=== PATIENT | male | born 1965 | race Caucasian/White ===

== ENCOUNTER 2020-11-06 08:08 | Day surgery (SDC) | payer BC, OTHER ==
[2020-10-29 12:10] VITALS: BMI 39.0
[2020-11-06] MEDS ORDERED: MIDAZOLAM HCL 2 MG/2 ML SINGLE DOSE VIAL ONE ×3 (09:50→12:09)
[2020-11-06] MEDS ORDERED: BUPIVACAINE HCL/PF 0.5% (5 MG/ML) 30 ML VIAL IJ ONE (09:50)
[2020-11-06] MEDS ORDERED: DEXAMETHASONE SOD PHOSPHATE 10 MG/1 ML VIAL ONE (10:30)
[2020-11-06] MEDS ORDERED: BUPIVACAINE HCL 50 ML ONE (11:41)
[2020-11-06] MEDS ORDERED: ceFAZolin SODIUM 1 GM VIAL ONE ×2 (12:08→13:24)
[2020-11-06] MEDS ORDERED: TRANEXAMIC ACID 1000 MG/10 ML VIAL ONE ×2 (12:08→13:24)
[2020-11-06] MEDS ORDERED: VANCOMYCIN 1,000 MG VIAL (RESTRICTED TO ID ONLY) ONE (12:08)
[2020-11-06] MEDS ORDERED: ONDANSETRON 4 MG/2 ML VIAL IVPUSH PRN ×2 (14:28→15:06)
[2020-11-06] MEDS ORDERED: oxyCODONE HCL 5 MG TABLET PO PRN (14:28)
[2020-11-06] MEDS ORDERED: MAG HYDROX/AL HYDROX/SIMETH 30 ML UNIT-DOSE CUP PO PRN (15:06)
[2020-11-06] MEDS ORDERED: MAGNESIUM HYDROX 2400MG/30ML ORAL SUSPENSION 30 ML CUP PO PRN (15:06)
[2020-11-06] MEDS ORDERED: KETOROLAC TROMETHAMINE 30 MG/1 ML VIAL IVPUSH ONE (15:13)
[2020-11-06] MEDS ORDERED: LACTATED RINGERS SOLUTION 1,000 ML IV SCH (15:15)
[2020-11-06] MEDS ORDERED: ACETAMINOPHEN 325 MG TABLET (FP) ONE (15:15)
[2020-11-06] MEDS: oxyCODONE HCL 10 MG SUSTAINED ACTING TABLET PO SCH ×2 (15:20→21:29)
[2020-11-06] MEDS: ACETAMINOPHEN 325 MG TABLET (FP) PO SCH ×2 (16:53→20:54)
[2020-11-06] MEDS: CEFAZOLIN 2 GM/D5W 2 GM/50 ML ML IVPB SCH (19:42)
[2020-11-06] MEDS: CELECOXIB 200 MG CAPSULE PO SCH (21:28)
[2020-11-06] MEDS: ASPIRIN COATED 81 MG TABLET.EC PO SCH (21:29)
[2020-11-06] MEDS: SENNOSIDES/DOCUSATE COMBO (SENNA PLUS) TABLET (UD) PO SCH (21:30)
[2020-11-07] MEDS: CEFAZOLIN 2 GM/D5W 2 GM/50 ML ML IVPB SCH ×2 (02:00→09:46)
[2020-11-07] MEDS: ACETAMINOPHEN 325 MG TABLET (FP) PO SCH ×4 (02:55→21:11)
[2020-11-07] MEDS: oxyCODONE HCL 5 MG TABLET PO PRN ×2 (05:24→16:17)
[2020-11-07 07:58] LABS: HEMATOCRIT 34.2 % (35.4-49); HEMOGLOBIN 11.6 GM/dl (11.7-16.9); MCH 30.5 pg (25.7-33.7); MCHC 33.9 g/dl (32.0-35.9); MEAN CELL VOLUME 89.9 fl (80-96); MEAN PLT VOLUME 7.3 fl (7.5-11.1); PLATELET COUNT 282 10^3/uL (134-434); WHITE BLOOD COUNT 12.4 K/mm3 (4.0-10.8)
[2020-11-07] MEDS: SENNOSIDES/DOCUSATE COMBO (SENNA PLUS) TABLET (UD) PO SCH ×2 (09:48→21:11)
[2020-11-07] MEDS: CELECOXIB 200 MG CAPSULE PO SCH ×2 (09:48→21:11)
[2020-11-07] MEDS: ASPIRIN COATED 81 MG TABLET.EC PO SCH ×2 (09:52→21:11)
[2020-11-07] MEDS: oxyCODONE HCL 10 MG SUSTAINED ACTING TABLET PO SCH ×2 (09:53→21:11)
[2020-11-07] MEDS: PANTOPRAZOLE 40 MG TABLET PO SCH (09:53)
[2020-11-08] MEDS: ACETAMINOPHEN 325 MG TABLET (FP) PO SCH ×4 (03:42→20:14)
[2020-11-08 07:59] LABS: HEMATOCRIT 29.5 % (35.4-49); HEMOGLOBIN 10.3 GM/dl (11.7-16.9); MCH 31.1 pg (25.7-33.7); MEAN CELL VOLUME 88.9 fl (80-96); MEAN PLT VOLUME 7.4 fl (7.5-11.1); PLATELET COUNT 232 10^3/uL (134-434); RBC 3.32 M/mm3 (4.00-5.60); WHITE BLOOD COUNT 11.7 K/mm3 (4.0-10.8)
[2020-11-08] MEDS: ASPIRIN COATED 81 MG TABLET.EC PO SCH ×2 (10:30→21:37)
[2020-11-08] MEDS: oxyCODONE HCL 10 MG SUSTAINED ACTING TABLET PO SCH ×2 (10:30→21:37)
[2020-11-08] MEDS: SENNOSIDES/DOCUSATE COMBO (SENNA PLUS) TABLET (UD) PO SCH ×2 (10:30→21:37)
[2020-11-08] MEDS: CELECOXIB 200 MG CAPSULE PO SCH ×2 (10:30→21:37)
[2020-11-08] MEDS: PANTOPRAZOLE 40 MG TABLET PO SCH (10:30)
[2020-11-09] MEDS: ACETAMINOPHEN 325 MG TABLET (FP) PO SCH ×2 (04:50→08:39)
[2020-11-09] MEDS: CELECOXIB 200 MG CAPSULE PO SCH (09:23)
[2020-11-09] MEDS: ASPIRIN COATED 81 MG TABLET.EC PO SCH (09:23)
[2020-11-09] MEDS: oxyCODONE HCL 10 MG SUSTAINED ACTING TABLET PO SCH (09:23)
[2020-11-09] MEDS: SENNOSIDES/DOCUSATE COMBO (SENNA PLUS) TABLET (UD) PO SCH (09:24)
[2020-11-09] MEDS: PANTOPRAZOLE 40 MG TABLET PO SCH (09:24)
[2020-11-09 14:07] VITALS: BP 112/68; PULSE 105; TEMP 98.8
[2020-11-10] MEDS ORDERED: POLYETHYLENE GLYCOL (HEALTHYLAX) 3350 17 GM PACKET PO SCH (10:00)
== END 2020-11-09 15:19 | disposition home or self-care (01) ==
LOC: FASUSAT 08:08 → FM/S 16:15 → FASUSAT 11-09 15:19
PROVIDERS: ATTEND Orthopaedic Surgery Orthopaedic Surgery of the Spine
PROC: 0SR90JA Replacement of Right Hip Joint with Synthetic Substitute, Uncemented, Open Approach (ICD-10-PCS; principal; 2020-11-06 12:45)
DX: M16.0 Bilateral primary osteoarthritis of hip (principal); J44.9 Chronic obstructive pulmonary disease, unspecified; G47.30 Sleep apnea, unspecified; Z98.84 Bariatric surgery status
CPT/HCPCS: 36415; 73502-TC-RT-FY; 80048; 85027; 88305-TC; 88311-TC; 94760; 97010-GP; 97116-GP; 97161-GP; J1100

== ENCOUNTER 2021-01-01 05:59 | Day surgery (SDC) | payer BC, OTHER ==
[2020-12-26 09:22] VITALS: BMI 39.0
[2021-01-01] MEDS ORDERED: LOCK ITEM NR ONE (06:35)
[2021-01-01] MEDS ORDERED: MIDAZOLAM HCL 2 MG/2 ML SINGLE DOSE VIAL ONE ×2 (06:52→08:48)
[2021-01-01] MEDS ORDERED: BUPIVACAINE HCL/PF 0.5% (5 MG/ML) 30 ML VIAL IJ ONE (06:52)
[2021-01-01] MEDS ORDERED: BENZOIN 118 ML SPRAY.PUMP TP ONE (07:18)
[2021-01-01] MEDS ORDERED: PROPOFOL 20 ML ONE ×4 (08:01→09:48)
[2021-01-01] MEDS ORDERED: SUCCINYLCHOLINE CHLORIDE 200 MG/10 ML SYRINGE ONE (08:01)
[2021-01-01] MEDS ORDERED: BUPIVACAINE HCL 50 ML ONE (08:03)
[2021-01-01] MEDS ORDERED: ePHEDrine SULFATE 50 MG/1 ML AMPULE ONE (08:19)
[2021-01-01] MEDS ORDERED: ceFAZolin SODIUM 1 GM VIAL ONE ×2 (08:27→10:17)
[2021-01-01] MEDS ORDERED: ONDANSETRON 4 MG/2 ML VIAL ONE (08:27)
[2021-01-01] MEDS ORDERED: VANCOMYCIN 1,000 MG VIAL (RESTRICTED TO ID ONLY) ONE (08:27)
[2021-01-01] MEDS ORDERED: MAG HYDROX/AL HYDROX/SIMETH 30 ML UNIT-DOSE CUP PO PRN (11:47)
[2021-01-01] MEDS ORDERED: MAGNESIUM HYDROX 2400MG/30ML ORAL SUSPENSION 30 ML CUP PO PRN (11:47)
[2021-01-01] MEDS ORDERED: ONDANSETRON 4 MG/2 ML VIAL IVPUSH PRN (11:47)
[2021-01-01] MEDS ORDERED: LACTATED RINGERS SOLUTION 1,000 ML IV SCH (12:00)
[2021-01-01] MEDS ORDERED: KETOROLAC TROMETHAMINE 30 MG/1 ML VIAL IVPUSH ONE (12:07)
[2021-01-01] MEDS ORDERED: ACETAMINOPHEN 1000 MG/100 ML VIAL (NON FORMULARY) IVPB PRN (12:08)
[2021-01-01] MEDS ORDERED: oxyCODONE HCL 5 MG TABLET ONE (12:47)
[2021-01-01] MEDS ORDERED: REFRIGERATED ANITBIOTICS ONE ×3 (14:46→21:31)
[2021-01-01] MEDS: CEFAZOLIN 3 GM in DEXTROSE 5%-WATER - 100 ML IVPB SCH ×2 (17:08→21:49)
[2021-01-01] MEDS: ASPIRIN COATED 81 MG TABLET.EC PO SCH (21:50)
[2021-01-01] MEDS: SENNOSIDES/DOCUSATE COMBO (SENNA PLUS) TABLET (UD) PO SCH (21:50)
[2021-01-01] MEDS: oxyCODONE HCL 5 MG TABLET PO PRN (21:52)
[2021-01-01] MEDS: CELECOXIB 200 MG CAPSULE PO SCH (23:39)
[2021-01-02] MEDS ORDERED: REFRIGERATED ANITBIOTICS ONE (02:49)
[2021-01-02] MEDS: CEFAZOLIN 3 GM in DEXTROSE 5%-WATER - 100 ML IVPB SCH (03:08)
[2021-01-02] MEDS ORDERED: LACTATED RINGERS SOLUTION 1,000 ML IV SCH (06:00)
[2021-01-02] MEDS: oxyCODONE HCL 5 MG TABLET PO PRN ×4 (06:29→21:49)
[2021-01-02 07:21] LABS: HEMATOCRIT 35.6 % (35.4-49); HEMOGLOBIN 11.4 GM/dl (11.7-16.9); MCH 27.8 pg (25.7-33.7); MCHC 32.1 g/dl (32.0-35.9); MEAN CELL VOLUME 86.4 fl (80-96); MEAN PLT VOLUME 7.3 fl (7.5-11.1); PLATELET COUNT 303 10^3/uL (134-434); RBC 4.11 M/mm3 (4.00-5.60); RDW 13.2 % (11.9-15.9); WHITE BLOOD COUNT 11.4 K/mm3 (4.0-10.8)
[2021-01-02 07:33] LABS: CALCIUM 8.2 mg/dl (8.5-10); CREATININE 0.9 mg/dl (0.55-1.3)
[2021-01-02] MEDS: ASPIRIN COATED 81 MG TABLET.EC PO SCH ×2 (10:49→21:48)
[2021-01-02] MEDS: CELECOXIB 200 MG CAPSULE PO SCH ×2 (10:50→21:48)
[2021-01-02] MEDS: PANTOPRAZOLE 40 MG TABLET PO SCH (10:50)
[2021-01-02] MEDS: SENNOSIDES/DOCUSATE COMBO (SENNA PLUS) TABLET (UD) PO SCH ×2 (10:51→21:48)
[2021-01-03] MEDS: oxyCODONE HCL 5 MG TABLET PO PRN ×4 (05:26→21:23)
[2021-01-03 07:44] LABS: HEMATOCRIT 31.8 % (35.4-49); MCH 29.2 pg (25.7-33.7); MCHC 34.7 g/dl (32.0-35.9); MEAN CELL VOLUME 84.4 fl (80-96); MEAN PLT VOLUME 7.1 fl (7.5-11.1); PLATELET COUNT 253 10^3/uL (134-434); RBC 3.77 M/mm3 (4.00-5.60); WHITE BLOOD COUNT 9.4 K/mm3 (4.0-10.8)
[2021-01-03] MEDS: PANTOPRAZOLE 40 MG TABLET PO SCH (09:31)
[2021-01-03] MEDS: CELECOXIB 200 MG CAPSULE PO SCH ×2 (09:31→21:22)
[2021-01-03] MEDS: SENNOSIDES/DOCUSATE COMBO (SENNA PLUS) TABLET (UD) PO SCH ×2 (09:31→21:22)
[2021-01-03] MEDS: ASPIRIN COATED 81 MG TABLET.EC PO SCH ×2 (09:32→21:22)
[2021-01-04] MEDS: oxyCODONE HCL 5 MG TABLET PO PRN (08:23)
[2021-01-04 08:27] VITALS: BP 128/69; PULSE 69; TEMP 98
[2021-01-04] MEDS: CELECOXIB 200 MG CAPSULE PO SCH (10:12)
[2021-01-04] MEDS: SENNOSIDES/DOCUSATE COMBO (SENNA PLUS) TABLET (UD) PO SCH (10:12)
[2021-01-04] MEDS: PANTOPRAZOLE 40 MG TABLET PO SCH (10:12)
[2021-01-04] MEDS: ASPIRIN COATED 81 MG TABLET.EC PO SCH (10:12)
== END 2021-01-04 14:44 | disposition home or self-care (01) ==
LOC: FASUSAT 05:59 → EDSTATUS 11:30 → FM/S 13:43 → FASUSAT 01-04 14:44
PROVIDERS: ATTEND Orthopaedic Surgery Orthopaedic Surgery of the Spine
PROC: 0SRB0J9 Replacement of Left Hip Joint with Synthetic Substitute, Cemented, Open Approach (ICD-10-PCS; principal; 2021-01-01 08:00)
DX: M16.12 Unilateral primary osteoarthritis, left hip (principal)
CPT/HCPCS: 27130; C1776; 36415; 73502-TC-LT-FY; 80048; 82962; 83036; 85027; 94760; 97116-GP; 97163-GP; J0131